=== PATIENT | female | born 1990 | race Caucasian/White ===

== ENCOUNTER 2017-06-16 11:59 | Emergency (ER) | payer OTHER ==
[~2017-06-16] VITALS: Ht 149.9 cm; Wt 59.0 kg
[~2017-06-16 11:59] MED LIST: FLEXERIL10 MG PO; LORTAB 5/500 501 TAB PO; PRENATAL PLUS1 TA1
--- NOTE | 2017-06-16 12:19 | Urgent Treatment Center Report ---
History of Present Issue Date/Time Seen by Provider 06/16/17 1216 Visit Reason Pt arrived:Walked Presenting Problem:PT C/O FEELING SOA, HURTS TO TAKE A DEEP BREATH AND JUST NOT FEELING WELL Location if Accident: Onset of symptoms date/time:/ or onset unknown for:MEDICAL HX UNKNOWN Have you (or family members/close friends) recently traveled outside the [place]? N If Yes, where/when: Have you had exposure to infectious disease within the past month? TB? Other? Specify: Source patient Exam Limitations no limitations Comment 27-year-old female presents with complaints of pain with deep breath, shortness of breath and dizzy. 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 Patient states all symptoms had disappeared except the sharp pain when she takes a deep breath. She denies pain unless taking a deep breath ALLERGIES Coded Allergies: amoxicillin (Mild, 06/16/17) Home Medications Reported Medications No Known Home Medications History Medical History General Angina: No [place]: No Hypertension? No Hyperlipidemia? No CHF? No COPD? No Asthma? No CVA? No Seizures? No Diabetes? No GB Disease: No MRSA? No TB? No Cancer? No Immunization HX DT/Tetanus 1-4 YRS Surgical Hx Previous Surgery?N Social History Smoking Hx Smoker: Never Smoker Tobacco: No Alcohol Alcohol: No Review of Systems All Other Systems Reviewed and Negative Respiratory see HPI, shortness of breath Physical Exam Vital Signs Vital Signs Date Time Temp Pulse Resp B/P Pulse O2 O2 Flow FiO2 Ox Delivery Rate 06/16 1208 98.5 77 20 128/85 100 - WBC >12,000 or <4,000 or 10% bands? 2 or more SIRS Criteria Met? B/P:128/85 MAP:99 Creatinine >2.0? UA output<0.5ml/kg/hr for 2 hrs? Platelet count >100,000? Lactate >2.0mmol/1? INR >1.2 or PTT > than 60 sec? Evidence of Organ Dysfunction? Provider documented clinical suspician of infection? Sepsis Criteria Count: 0 Sepsis Risk: General Appearance normal appearance, no apparent distress Respiratory Status Yes: trachea midline, chest symmetrical, non tender chest. No: respiratory distress. Lung Sounds bilateral: normal breath sounds, lungs clear. Cardiovascular normal exam, regular rate/rhythm, no peripheral edema, no murmur Neurologic alert, normal exam, oriented x 3 Medical Decision Making LABS/Meds/Orders Pt receiving controlled substance in ED? No Results/Orders Laboratory Tests 06/16/17 1225: Creatine Kinase 62, CK-MB (CK-2) Rel Index 0.8, CK and CKMB Interp < 0.5, Troponin I < 0.02 06/16/17 1225: Sodium 135 L, Potassium 4.2, Chloride 102, Carbon Dioxide 26, BUN 19 H, Creatinine 0.8, Estimated Creat Clear 100, Estimated GFR (MDRD) 87, Glucose 90, Calcium 9.1, Total Bilirubin 0.2, AST 12 L, ALT 14, Alkaline Phosphatase 98, Total Protein 8.5 H, Albumin 4.0, Globulin 4.5 H, Albumin/Globulin Ratio 0.9 L, D-Dimer < 100, WBC 7.5, RBC 4.63, Hgb 10.9 L, Hct 36.1 L, MCV 78.0 L, RDW 15.4, Plt Count 254, MPV 8.5, Gran % 61.0, Gran # 4.6, Lymphocytes % 33.8, Monocytes % 4.0, Eosinophils % 0.9, Basophils % 0.3, Lymphocytes # 2.5, Monocytes # 0.3, Eosinophils # 0.1, Basophils # 0.0, PUBS MCHC 30.2 L, MCH 23.5 L Orders Procedure Date/time Status [id number] VIEWS 06/16 1312 Active URINE 06/16 1219 Complete CARDIAC ENZYMES 06/16 1219 Complete CHEST(2 VIEWS-NOT PORTABLE) 06/16 1216 Active D-DIMER 06/16 1216 Complete CBC WITH AUTO DIFF 06/16 1216 Complete CHEM 12 PROFILE 06/16 1216 Complete XRAY/CT/US XRAY/CT/US XRAY chest XR interpretation by reviewed by me (marisa) Xray Results normal/NAD, no fracture seen Consult MD Physician Consult Consult/PCP engel Time Called 1348 Reason Pt. Condition Comments Patient's labs, patient's complaints, x-ray Departure Departure Time of Disposition 1348 Disposition DC Home or Self Care(routine) Clinical Impression Primary Impression: Muscle strain Condition STABLE Referrals Boy GEORGE,Beka (Family) Patient Instructions Muscle Strain Additional Instructions Rotate heat and ice for comfort Ibuprofen or Tylenol for pain Follow-up with PCP this week Symptoms worsen or do not improve return or be seen in the ER Discharge Counseling Counseled pt/family regarding diagnosis, test results, medications/RX, home care, follow up needs Prescriptions Current Visit Scripts No Known Home Medications at 1350
[2017-06-16 12:52] LABS: HEMOGLOBIN 10.9 g/dL (12.2-16.2); LYMPH # 2.5 K/mm3 (0.7-4.5); LYMPH % 33.8 % (10-50.0)
[2017-06-16 13:51] VITALS: BP 128/85
--- NOTE | 2017-06-16 16:48 | RADIOLOGY REPORT PS360 ---
[id number] VIEWS HISTORY: Left-sided chest pain/rib pain chest pain,sob ORDERING PHYSICIAN: Jesi Wilhelm PATIENT AGE: 27 years COMPARISON: None FINDINGS: Multiple views of the Left ribs were obtained. No fracture or dislocation. No lytic or blastic change. IMPRESSION: Negative RIBS. If pain persists, consider follow-up exam in 7-[address] with 3-D reformats.
--- NOTE | 2017-06-16 16:49 | RADIOLOGY REPORT PS360 ---
CHEST(2 VIEWS-NOT PORTABLE) HISTORY: sob ORDERING PHYSICIAN: Jesi Wilhelm PATIENT AGE: 27 years COMPARISON: None available FINDINGS: The cardiomediastinal silhouette and pulmonary vascularity are within normal limits. The lungs are clear without infiltrates, suspicious nodules, or pleural effusions. No acute bony abnormalities. There is mild thoracic curvature convex right and there is a mild pectus deformity with some silhouetting out of the right heart border. IMPRESSION: No acute finding
--- OUTSIDE RECORDS SUMMARY | 2017-06-17 03:45 | External Medical Summary Rpt | CCD ---
Author Author , ADI JOSHI Address Unknown Phone [email or web address] Care Team Providers Care Corporate Event Planner Name Role Phone DRUZE ANESTHESIA Unavailable Unavailable PSC, DRUZE ANESTHESIA [facility], Unavailable Unavailable [facility], Unavailable Unavailable [facility] Unavailable Unavailable HOLDINGS, [facility] Unavailable Unavailable HOLDINGS, [facility] [place] SURVEYING OR SPATIAL SCIENCE TECHNICIAN Unavailable Unavailable ASSOCIATES,, [place] [facility], [facility] Unavailable [facility]available [facility], [facility] Unavailable Unavailable [facility], [facility] Un[facility] ANGELINA BARILLAS, Unavailable Unavailable ANGELINA BARILLAS LIZETH CANDELARIA, LIZETH Unavailable Unavailable CANDELARIA WHITE III SARAH, WHITE Unavailable Unavailable III SARAH Purpose Continuity of Care Document - 06-24-2014 through 2016 Problems Code Diagnosis DOS Provider Status Z3049 ENCOUNTER 04-26-2016 [place] FOR SURVEYING OR SPATIAL SCIENCE TECHNICIAN SURVEILLANC ASSOCIATES, E OTHER CONTRACEPTI VES Z392 ENCOUNTER 04-26-2016 [facility] FOR [facility]OUTINE [facility] FOLLOW-UP O80 ENCOUNTER 03-09-2016 [facility] FOR ANESTHESIA FULL-TERM PSC UNCOMPLICAT ED DELIVERY [id number] ANEMIA 03-09-2016 [facility] COMPLICATIN SURVEYING OR SPATIAL SCIENCE TECHNICIAN G ASSOCIATES, THIRD TRIMESTER Z370 SINGLE LIVE 03-09-2016 [facility] ANESTHESIA PSC Z3A40 40 WEEKS 03-09-2016 [place] GESTATION SURVEYING OR SPATIAL SCIENCE TECHNICIAN OF ASSOCIATES, T12791 OTH MENTAL 03-08-2016 [facility] DISORDER SURVEYING OR SPATIAL SCIENCE TECHNICIAN COMP ASSOCIATES, 3RD TRIMESTER D03370 DISEASES 03-08-2016 [facility] NERVOUS SURVEYING OR SPATIAL SCIENCE TECHNICIAN SYSTEM COMP ASSOCIATES, 3RD TRI Z3483 ENC 02-16-2016 [facility] DI[facility]NO[facility] OTH NORMAL [facility] 3 TRIMESTER Z36 ENCOUNTER 02-16-2016 [facility] FOR DIAGNOSTIC LAB [facility] SCREENING OF MOTHER Z3480 ENC 12-08-2015 [facility] SUPERVISION [facility] OTH NORMAL HOLDINGS PREG UNS TRIMESTER F88688 OTH MENTAL 11-10-2015 [facility] DISORDER SURVEYING OR SPATIAL SCIENCE TECHNICIAN COMP ASSOC[facility]ATES, 2ND TRIMESTER N72 INFLAMMATOR 10-13-2015 [facility] Y DISEASE [facility] OF [facility] HOLDINGS UTERI C68179 UTERINE 08-18-2015 [place] SIZE-DATE SURVEYING OR SPATIAL SCIENCE TECHNICIAN DISCREPANCY ASSOCIATES, FIRST TRIMESTER Z05241 OTH MENTAL 08-18-2015 [facility] DISORDER SURVEYING OR SPATIAL SCIENCE TECHNICIAN COMP ASSOCIATES, 1ST TRIMESTER 6202 OTHER AND 12-30-2014 [place] UNSPECIFIED SURVEYING OR SPATIAL SCIENCE TECHNICIAN OVARIAN ASSOCIATES, CYST 10992 INFECTIONS 12-30-2014 [place] OF SURVEYING OR SPATIAL SCIENCE TECHNICIAN GENITOURINA ASSOCIATES, RY TRACT ANTEPARTUM V7231 ROUTINE 11-11-2014 [facility] GYNECOLOGIC LLC AL EXAMINATION V745 SCREENING 11-11-2014 [facility] EXAMINATION LLC FOR VENEREAL DISEASE 61625 NAUSEA WITH 06-24-2014 [facility] Procedures Procedure DOS Code Location Performer Comment CYTP C/V 83036 [facility], PICKLESIM AUTO THIN 6 LLC ER JR NARGIS LYR PREPJ SCR MNL RESCR PHYS VAGINAL 64640 [place] LIZETH DELIVERY 6 SURVEYING OR SPATIAL SCIENCE TECHNICIAN CANDELARIA ONLY ASSOCIATE S, NEURAXIAL 04957 DRUZE WHITE III LABOR 6 ANESTHESI SARAH ANALG/ANE A PSC S PLND VAGINAL DELIVERY IADNA 04556 [facility] STREPTOCO 6 DIAGNOSTI DIAGNOSTI CCUS C LAB LLC C LAB LLC GROUP B AMPLIFIED PROBE TQ GLUCOSE 57676 [facility] POST 6 GABO [facility] GLUCOSE HOLDINGS HOLDINGS DOSE ANTIBODY 76845 [facility] SCREEN 6 GABO GABO RBC EACH HOLDINGS HOLDINGS SERUM TECHNIQUE BLOOD 95000 [facility] COUNT 6 GABO GABO COMPLETE HOLDINGS HOLDINGS AUTOMATED IADNA 70666 [facility] NEISSERIA 6 GABO GAB[facility] HOLDINGS HOLDINGS GONORRHOE AE AMPLIFIED PROBE TQ IADNA 13683 [facility] CHLAMYDIA 6 [facility] HOLDINGS HOLDINGS [place] [address] [place] LIZETH 5 SURVEYING OR SPATIAL SCIENCE TECHNICIAN CANDELARIA UTERUS 14 ASSOCIATE WK S, TRANSABDL [place]STAT [place] PREG 20034 [place] LIZETH UTERUS 5 SURVEYING OR SPATIAL SCIENCE TECHNICIAN CANDELARIA REAL TIME ASSOCIATE W/IMAGE S, DCMTN TRANSVAG CYTP C/V 96126 [facility] PICKLESIM AUTO THIN 5 LLC ER JR NARGIS LYR PREPJ SCR MNL RESCR PHYS IADNA 58991 [facility], PICKLESIM CHLAMYDIA 5 LLC ER JR NARGIS TRACHOMAT IS AMPLIFIED PROBE TQ IADNA 31016 [facility], P[facility]LESIM NEISSERIA 5 LLC ER JR NARGIS GONORRHOE AE AMPLIFIED PROBE TQ Encounters Encounter Start End Date Code Location Performer Type Date OFFICE 64314 [place] LIZETH OUTPATIEN 6 6 SURVEYING OR SPATIAL SCIENCE TECHNICIAN CANDELARIA T VISIT ASSOCIATE 15 S, MINUTES OFFICE 85191 [place] LIZETH OUTPATIEN 6 6 SURVEYING OR SPATIAL SCIENCE TECHNICIAN CANDELARIA T VISIT ASSOCIATE 15 S, MINUTES OFFICE 95820 [place] LIZETH OUTPATIEN 6 6 SURVEYING OR SPATIAL SCIENCE TECHNICIAN CANDELARIA T VISIT ASSOCIATE 15 S, MINUTES OFFICE 84552 [place] LIZETH OUTPATIEN 6 6 SURVEYING OR SPATIAL SCIENCE TECHNICIAN CANDELARIA T VISIT ASSOCIATE 15 S, MINUTES OFFICE 24036 [place] LIZETH OUTPATIEN 6 6 SURVEYING OR SPATIAL SCIENCE TECHNICIAN CANDELARIA T VISIT ASSOCIATE 15 S, MINUTES OFFICE 37935 [place] LIZETH OUTPATIEN 6 6 SURVEYING OR SPATIAL SCIENCE TECHNICIAN CANDELARIA T VISIT ASSOCIATE 15 S, MINUTES OFFICE 19957 [place] LIZETH OUTPATIEN 6 6 SURVEYING OR SPATIAL SCIENCE TECHNICIAN CANDELARIA T VISIT ASSOCIATE 15 S, MINUTES OFFICE 06426 [place] LIZETH OUTPATIEN 6 6 SURVEYING OR SPATIAL SCIENCE TECHNICIAN CANDELARIA T VISIT ASSOCIATE 15 S, MINUTES OFFICE 56492 [place] LIZETH OUTPATIEN 6 6 SURVEYING OR SPATIAL SCIENCE TECHNICIAN CANDELARIA T VISIT ASSOCIATE 15 S, MINUTES OFFICE 84594 [place] LIZETH OUTPATIEN 6 6 SURVEYING OR SPATIAL SCIENCE TECHNICIAN CANDELARIA T VISIT ASSOCIATE 15 S, MINUTES OFFICE 29640 [place] LIZETH OUTPATIEN 6 6 SURVEYING OR SPATIAL SCIENCE TECHNICIAN CANDELARIA T VISIT ASSOCIATE 15 S, MINUTES OFFICE 88590 [place] LIZETH OUTPATIEN 6 6 SURVEYING OR SPATIAL SCIENCE TECHNICIAN CANDELARIA T VISIT ASSOCIATE 15 S, MINUTES OFFICE 48041 [facility] OUTPATIEN 5 5 SURVEYING OR SPATIAL SCIENCE TECHNICIAN CANDELARIA T VISIT ASSOCIATE 15 S, MINUTES OFFICE 79807 [facility] OUTPATIEN 5 5 SURVEYING OR SPATIAL SCIENCE TECHNICIAN CANDELARIA T VISIT ASSOCIATE 25 S, MINUTES PERIODIC 75369 [facility] STAN[facility] PREVENTIV 5 5 SURVEYING OR SPATIAL SCIENCE TECHNICIAN CANDELARIA E MED EST ASSOCIATE PATIENT S, 18-39 YRS OFFICE 85583 [facility] INGRIS OUTPATIEN 4 4 PHYSICIAN MARKUS T VISIT S GROUP 10 MINUTES
--- OUTSIDE RECORDS SUMMARY | 2017-06-17 03:45 | External Medical Summary Rpt | CCD ---
Author Author , ADI JOSHI Address Unknown Phone [email or web address] Care Team Providers Care Precision Inspector Name Role Phone MORAVIAN ANESTHESIA Unavailable Unavailable PSC, MORAVIAN ANESTHESIA PSC [facility], Unavailable Unavailable [facility], Unavailable Unavailable [facility] Unavailable Unavailable HOLDINGS, [facility] Unavailable Unavailable HOLDINGS, [facility] [place] CROP CONSULTANT Unavailable Unavailable ASSOCIATES,, [place] [facility], [facility] Unavailable Unavailable [facility], [...] Provider Status Z3049 ENCOUNTER 04-26-2016 [place] FOR CROP CONSULTANT SURVEILLANC ASSOCIATES, E OTHER CONTRACEPTI VES Z392 ENCOUNTER 04-26-2016 [facility] FOR ROUTINE LLC FOLLOW-UP O80 ENCOUNTER 03-09-2016 [place] FOR ANESTHESIA FULL-TERM PSC UNCOMPLICAT ED DELIVERY Z99772 ANEMIA 03-09-2016 [facility] COMPLICATIN CROP CONSULTANT G ASSOCIATES, THIRD TRIMESTER Z370 SINGLE LIVE 03-09-2016 MORAVIAN ANESTHESIA PSC Z3A40 40 WEEKS 03-09-2016 [place] GESTATION CROP CONSULTANT OF ASSOCIATES, U75165 OTH MENTAL 03-08-2016 [facility] DISORDER CROP CONSULTANT COMP ASSOCIATES, 3RD TRIMESTER Q83663 DISEASES 03-08-2016 [facility] NERVOUS CROP CONSULTANT SYSTEM COMP ASSOCIATES, 3RD TRI Z3483 ENC 02-16-2016 [facility] DIAGNOSTIC OTH NORMAL LAB LLC 3 TRIMESTER Z36 ENCOUNTER 02-16-2016 [facility] FOR DIAGNOSTIC LAB LLC SCREENING OF MOTHER Z3480 ENC 12-08-2015 [facility] SUPERVISION [facility]ABO OTH NORMAL HOLDINGS PREG UNS TRIMESTER G73116 OTH MENTAL 11-10-2015 [facility] DISORDER CROP CONSULTANT COMP ASSOCIATES, 2ND TRIMESTER N72 INFLAMMATOR 10-13-2015 [facility] Y DISEASE [facility] OF [facility] HOLDINGS UTERI L68643 UTERINE 08-18-2015 [place] SIZE-DATE CROP CONSULTANT DISCREPANCY ASSOCIATES, FIRST TRIMESTER X09071 OTH MENTAL 08-18-2015 [facility] DISORDER CROP CONSULTANT COMP ASSOCIATES, 1ST TRIMESTER 6202 OTHER AND 12-30-2014 [place] UNSPECIFIED CROP CONSULTANT OVARIAN ASSOCIATES, CYST 32369 INFECTIONS 12-30-2014 [place] OF CROP CONSULTANT GENITOURINA ASSOCIATES, RY TRACT ANTEPARTUM V7231 ROUTINE 11-11-2014 [facility] GYNECOLOGIC LLC AL EXAMINATION V745 SCREENING 11-11-2014 [facility] EXAMINATION LLC FOR VENEREAL DISEASE 57303 NAUSEA WITH 06-24-2014 [facility] Procedures Procedure DOS Code Location Performer Comment CYTP C/V 92766 [facility], PICKLESIM AUTO THIN 6 LLC ER JR NARGIS LYR PREPJ SCR MNL RESCR PHYS VAGINAL 57260 [place] LIZETH DELIVERY 6 CROP CONSULTANT CANDELARIA ONLY ASSOCIATE S, NEURAXIAL 27491 MORAVIAN WHITE III LABOR 6 ANESTHESI SARAH ANALG/ANE A PSC S PLND VAGINAL DELIVERY IADNA 53517 [facility] MEDICAL STREPTOCO 6 DIAGNOSTI DIAGNOSTI CCUS C LAB LLC C LAB LLC GROUP B AMPLIFIED PROBE TQ GLUCOSE 33712 [facility] POST 6 GABO [facility] GLUCOSE HOLDINGS HOLDINGS DOSE ANTIBODY 55954 [facility] SCREEN 6 GABO GABO RBC EACH HOLDINGS HOLDINGS SERUM TECHNIQUE BLOOD 07578 [facility] LAB [facility] COUNT 6 GAB[facility] GABO COMPLETE HOLDINGS HOLDINGS AUTOMATED IADNA 22250 [facility] NEISSERIA 6 GAB[facility] G[facility] HOLDINGS HOLDINGS GONORRHOE AE AMPLIFIED PROBE TQ IADNA 26757 [facility] CHLAMYDIA 6 GABO GABO HOLDINGS HOLDINGS [place] [address] [place] LIZETH 5 CROP CONSULTANT CANDELARIA UTERUS 14 ASSOCIATE WK S, TRANSABDL [place]STAT [place] PREG 56571 [place] LIZETH UTERUS 5 CROP CONSULTANT CANDELARIA REAL TIME ASSOCIATE W/IMAGE S, DCMTN TRANSVAG CYTP C/V 82569 [facility] P[facility] AUTO THIN 5 LLC ER JR NARGIS LYR PREPJ SCR MNL RESCR PHYS IADNA 33120 [facility], P[facility]IM CHLAMYDIA 5 LLC ER JR NARGIS TRACHOMAT IS AMPLIFIED PROBE TQ IADNA 87991 [facility] P[facility] NEISSERIA 5 LLC ER JR NARGIS GONORRHOE AE AMPLIFIED PROBE TQ Encounters Encounter Start End Date Code Location Performer Type Date OFFICE 80453 [place] LIZETH OUTPATIEN 6 6 CROP CONSULTANT CANDELARIA T VISIT ASSOCIATE 15 S, MINUTES OFFICE 20708 [place] LIZETH OUTPATIEN 6 6 CROP CONSULTANT CANDELARIA T VISIT ASSOCIATE 15 S, MINUTES OFFICE 53993 [place] LIZETH OUTPATIEN 6 6 CROP CONSULTANT CANDELARIA T VISIT ASSOCIATE 15 S, MINUTES OFFICE 27301 [place] LIZETH OUTPATIEN 6 6 CROP CONSULTANT CANDELARIA T VISIT ASSOCIATE 15 S, MINUTES OFFICE 38043 [place] LIZETH OUTPATIEN 6 6 CROP CONSULTANT CANDELARIA T VISIT ASSOCIATE 15 S, MINUTES OFFICE 67927 [place] LIZETH OUTPATIEN 6 6 CROP CONSULTANT CANDELARIA T VISIT ASSOCIATE 15 S, MINUTES OFFICE 58397 [place] LIZETH OUTPATIEN 6 6 CROP CONSULTANT CANDELARIA T VISIT ASSOCIATE 15 S, MINUTES OFFICE 35730 [place] LIZETH OUTPATIEN 6 6 CROP CONSULTANT CANDELARIA T VISIT ASSOCIATE 15 S, MINUTES OFFICE 90267 [place] LIZETH OUTPATIEN 6 6 CROP CONSULTANT CANDELARIA T VISIT ASSOCIATE 15 S, MINUTES OFFICE 11719 [place] LIZETH OUTPATIEN 6 6 CROP CONSULTANT CANDELARIA T VISIT ASSOCIATE 15 S, MINUTES OFFICE 80731 [place] LIZETH OUTPATIEN 6 6 CROP CONSULTANT CANDELARIA T VISIT ASSOCIATE 15 S, MINUTES OFFICE 24883 [place] LIZETH OUTPATIEN 6 6 CROP CONSULTANT CANDELARIA T VISIT ASSOCIATE 15 S, MINUTES OFFICE 20824 [facility] STAN[facility] OUTPATIEN 5 5 CROP CONSULTANT CANDELARIA T VISIT ASSOCIATE 15 S, MINUTES OFFICE 77545 [facility] ST[facility] OUTPATIEN 5 5 CROP CONSULTANT CANDELARIA T VISIT ASSOCIATE 25 S, MINUTES PERIODIC 67854 [facility] STANLEY PREVENTIV 5 5 CROP CONSULTANT CANDELARIA E MED EST ASSOCIATE PATIENT S, 18-39 YRS OFFICE 79959 [facility] OUTPATIEN 4 4 PHYSICIAN MARKUS T VISIT S GROUP 10 MINUTES
--- OUTSIDE RECORDS SUMMARY | 2017-06-17 03:46 | External Medical Summary Rpt | CCD ---
Author Author , ADI JOSHI Address Unknown Phone [email or web address] Care Team Providers Care Job Placement Counselor Name Role Phone TAOISM ANESTHESIA Unavailable Unavailable [facility], [facility], Unavailable Unavailable [facility], Unavailable Unavailable [facility] Unavailable Unavailable HOLDINGS, [facility] Unavailable Unavailable HOLDINGS, [facility] [place] COTTAGE SUPERVISOR Unavailable Unavailable ASSOCIATES,, [place] [facility], [facility] Unavailable [facility]available [facility], [facility] Unavailable [facility], [facility], [facility] Un[facility] LLC ANGELINA BARILLAS, Unavailable Unavailable ANGELINA GAONA, LIZETH Unavailable Unavailable CANDELARIA WHITE III SARAH, WHITE Unavailable Unavailable III SARAH Purpose Continuity of Care Document - 06-24-2014 through 2016 Problems Code Diagnosis DOS Provider Status Z3049 ENCOUNTER 04-26-2016 [place] FOR COTTAGE SUPERVISOR SURVEILLANC ASSOCIATES, E OTHER CONTRACEPTI VES Z392 ENCOUNTER 04-26-2016 [facility] FOR ROUTINE LLC FOLLOW-UP O80 ENCOUNTER 03-09-2016 [facility] FOR ANESTHESIA FULL-TERM PSC UNCOMPLICAT ED DELIVERY [id number] ANEMIA 03-09-2016 [place] COMPLICATIN COTTAGE SUPERVISOR G ASSOCIATES, THIRD TRIMESTER Z370 SINGLE LIVE 03-09-2016 [facility]OISM ANESTHESIA PSC [id number] 40 WEEKS 03-09-2016 [place] GESTATION COTTAGE SUPERVISOR OF ASSOCIATES, [id number] OTH MENTAL 03-08-2016 [place] DISORDER COTTAGE SUPERVISOR COMP ASSOCIATES, 3RD TRIMESTER U30510 DISEASES 03-08-2016 [place] NERVOUS COTTAGE SUPERVISOR SYSTEM COMP ASSOCIATES, 3RD TRI Z3483 ENC 02-16-2016 [facility]VISION DIAGNOSTIC OTH NORMAL LAB [facility] 3 TRIMESTER Z36 ENCOUNTER 02-16-2016 [facility] FOR DIAGNOSTIC LAB LLC SCREENING OF MOTHER Z3480 ENC 12-08-2015 LAB [facility] SUPERVISION [facility]ABO OTH NORMAL HOLDINGS PREG UNS TRIMESTER H03406 OTH MENTAL 11-10-2015 [place] DISORDER COTTAGE SUPERVISOR COMP ASSOCIATES, 2ND TRIMESTER N72 INFLAMMATOR 10-13-2015 LAB [facility] Y DISEASE [facility] OF CERVIX HOLDINGS UTERI Z34593 UTERINE 08-18-2015 [facility] COTTAGE SUPERVISOR DISCREPANCY ASSOCIATES, FIRST TRIMESTER C86970 OTH MENTAL 08-18-2015 [place] DISORDER COTTAGE SUPERVISOR COMP ASSOCIATES, 1ST TRIMESTER 6202 OTHER AND 12-30-2014 [employer] UNSPECIFIED COTTAGE SUPERVISOR OVARIAN ASSOCIATES, CYST 93174 INFECTIONS 12-30-2014 [employer] OF COTTAGE SUPERVISOR GENITOURINA ASSOCIATES, RY TRACT ANTEPARTUM V7231 ROUTINE 11-11-2014 [facility], GYNECOLOGIC ZummZumm AL EXAMINATION V745 SCREENING 11-11-2014 [facility], EXAMINATION LLC FOR VENEREAL DISEASE 93773 NAUSEA WITH 06-24-2014 [facility] Procedures Procedure DOS Code Location Performer Comment CYTP C/V 78042 [facility], PICKLESIM AUTO THIN 6 LLC ER JR NARGIS LYR PREPJ SCR MNL RESCR PHYS VAGINAL 71712 [place] LIZETH DELIVERY 6 COTTAGE SUPERVISOR CANDELARIA ONLY ASSOCIATE S, NEURAXIAL 74458 TAOISM WHITE III LABOR 6 ANESTHESI SARAH ANALG/ANE A PSC S PLND VAGINAL DELIVERY IADNA 59085 [facility] STREPTOCO 6 DIAGNOSTI DIAGNOSTI CCUS C LAB LLC C LAB LLC GROUP B AMPLIFIED PROBE TQ BLOOD 21434 [facility] LAB [facility] COUNT 6 GABO GABO COMPLETE HOLDINGS HOLDINGS AUTOMATED ANTIBODY 81551 LAB [facility] LAB [facility] SCREEN 6 GABO GABO RBC EACH HOLDINGS HOLDINGS SERUM TECHNIQUE GLUCOSE 44277 LAB [facility] LAB [facility] POST 6 GABO GABO GLUCOSE HOLDINGS HOLDINGS DOSE IADNA 41954 [facility] LAB [facility] CHLAMYDIA 6 GABO GABO HOLDINGS HOLDINGS TRACHOMAT IS AMPLIFIED PROBE TQ IADNA 35067 LAB [facility] LAB [facility] NEISSERIA 6 GABO GABO HOLDINGS HOLDINGS [place] [address] [place] LIZETH 5 COTTAGE SUPERVISOR CANDELARIA UTERUS 14 ASSOCIATE WK S, TRANSABDL GESTAT [place] PREG 94583 [place] LIZETH UTERUS 5 COTTAGE SUPERVISOR CANDELARIA REAL TIME ASSOCIATE W/IMAGE S, DCMTN TRANSVAG CYTP C/V 82741 [facility], PICKLESIM AUTO THIN 5 LLC ER JR NARGIS LYR PREPJ SCR MNL RESCR PHYS IADNA 49149 [facility], PICKLESIM NEISSERIA 5 LLC ER JR NARGIS GONORRHOE AE AMPLIFIED PROBE TQ IADNA 09086 [facility], PICKLESIM CHLAMYDIA 5 LLC ER JR NARGIS TRACHOMAT IS AMPLIFIED PROBE TQ Encounters Encounter Start End Date Code Location Performer Type Date OFFICE 88782 [place] LIZETH OUTPATIEN 6 6 COTTAGE SUPERVISOR CANDELARIA T VISIT ASSOCIATE 15 S, MINUTES OFFICE 86532 [place] LIZETH OUTPATIEN 6 6 COTTAGE SUPERVISOR CANDELARIA T VISIT ASSOCIATE 15 S, MINUTES OFFICE 92683 [place] LIZETH OUTPATIEN 6 6 COTTAGE SUPERVISOR CANDELARIA T VISIT ASSOCIATE 15 S, MINUTES OFFICE 31251 [place] LIZETH OUTPATIEN 6 6 COTTAGE SUPERVISOR CANDELARIA T VISIT ASSOCIATE 15 S, MINUTES OFFICE 62803 [place] LI[facility]ETH OUTPATIEN 6 6 COTTAGE SUPERVISOR CANDELARIA T VISIT ASSOCIATE 15 S, MINUTES OFFICE 65838 [place] LI[facility] OUTPATIEN 6 6 COTTAGE SUPERVISOR CANDELARIA T VISIT ASSOCIATE 15 S, MINUTES OFFICE 71686 [place] LIZETH OUTPATIEN 6 6 COTTAGE SUPERVISOR CANDELARIA T VISIT ASSOCIATE 15 S, MINUTES OFFICE 76997 [place] LI[facility] OUTPATIEN 6 6 COTTAGE SUPERVISOR CANDELARIA T VISIT ASSOCIATE 15 S, MINUTES OFFICE 68792 [place] [facility] OUTPATIEN 6 6 COTTAGE SUPERVISOR CANDELARIA T VISIT ASSOCIATE 15 S, MINUTES OFFICE 49377 [place] LI[facility]ETH OUTPATIEN 6 6 COTTAGE SUPERVISOR CANDELARIA T VISIT ASSOCIATE 15 S, MINUTES OFFICE 10855 [place] LI[facility]ETH OUTPATIEN 6 6 COTTAGE SUPERVISOR CANDELARIA T VISIT ASSOCIATE 15 S, MINUTES OFFICE 74723 [place] [facility] OUTPATIEN 6 6 COTTAGE SUPERVISOR CANDELARIA T VISIT ASSOCIATE 15 S, MINUTES OFFICE 07089 [facility] OUTPATIEN 5 5 COTTAGE SUPERVISOR CANDELARIA T VISIT ASSOCIATE 15 S, MINUTES OFFICE 28877 [facility] OUTPATIEN 5 5 COTTAGE SUPERVISOR CANDELARIA T VISIT ASSOCIATE 25 S, MINUTES PERIODIC 02440 [facility] PREVENTIV 5 5 COTTAGE SUPERVISOR CANDELARIA E MED EST ASSOCIATE PATIENT S, 18-39 YRS OFFICE 87641 [facility] INGRIS OUTPATIEN 4 4 PHYSICIAN MARKUS T VISIT S GROUP 10 MINUTES
--- OUTSIDE RECORDS SUMMARY | 2017-06-17 03:46 | External Medical Summary Rpt | CCD ---
Demographics Preferred Language Bolivian Marital Status Unknown Hoahaoism Affiliation Unknown Race Unknown Ethnic Group Unknown Author Author , CASSY JOSHI Address Unknown Phone Immunization No patient found.
--- OUTSIDE RECORDS SUMMARY | 2017-06-17 03:46 | External Medical Summary Rpt | CCD ---
Demographics Preferred Language Welsh Marital Status Unknown Alevism Affiliation Unknown Race Unknown Ethnic Group Unknown Author Author , CASSY JOSHI Address Unknown Phone Immunization No patient found.
--- OUTSIDE RECORDS SUMMARY | 2017-06-17 03:46 | External Medical Summary Rpt | CCD ---
Author Author , ADI JOSHI Address Unknown Phone [email or web address] Care Team Providers Care Windows Mobile Developer Name Role Phone SIKH ANESTHESIA Unavailable Unavailable [facility]SC, [facility] ANESTHESIA [facility], Unavailable Unavailable [facility], Unavailable Unavailable [facility] LAB [facility] Unavailable Unavailable HOLDINGS, [facility] Unavailable Unavailable HOLDINGS, [facility] HOLDINGS [place] GAS FLOW REGULATOR Unavailable Unavailable ASSOCIATES,, [place] G[facility] FLOW REGUL[facility], [facility] Unavailable Unavailable [facility], [...] Provider Status Z3049 ENCOUNTER 04-26-2016 [place] FOR GAS FLOW REGULATOR SURVEILLANC ASSOCIATES, E OTHER CONTRACEPTI VES Z392 ENCOUNTER 04-26-2016 [facility] FOR ROUTINE LLC FOLLOW-UP O80 ENCOUNTER 03-09-2016 [facility] FOR ANESTHESIA FULL-TERM PSC UNCOMPLICAT ED DELIVERY L25717 ANEMIA 03-09-2016 [place] COMPLICATIN GAS FLOW REGULATOR G ASSOCIATES, THIRD TRIMESTER Z370 SINGLE LIVE 03-09-2016 [facility] ANESTHESIA PSC Z3A40 40 WEEKS 03-09-2016 [place] GESTATION GAS FLOW REGULATOR OF ASSOCIATES, W27833 OTH MENTAL 03-08-2016 [place] DISORDER GAS FLOW REGULATOR COMP ASSOCIATES, 3RD TRIMESTER I49730 DISEASES 03-08-2016 [place] NERVOUS GAS FLOW REGULATOR SYSTEM COMP ASSOCIATES, 3RD TRI Z3483 ENC 02-16-2016 MEDICAL SUPERVISION DIAGNOSTIC OTH NORMAL LAB LLC 3 TRIMESTER Z36 ENCOUNTER 02-16-2016 MEDICAL FOR DIAGNOSTIC LAB LLC SCREENING OF MOTHER Z3480 ENC 12-08-2015 LAB [facility]AK[facility]ER SUPERVISION GABO OTH NORMAL HOLDINGS PREG UNS TRIMESTER [id number] OTH MENTAL 11-10-2015 [place] DISORDER GAS FLOW REGULATOR COMP ASSOCIATES, 2ND TRIMESTER N72 INFLAMMATOR 10-13-2015 LAB [facility] Y DISEASE [facility] OF CERVIX HOLDINGS UTERI T78952 UTERINE 08-18-2015 [facility] GAS FLOW REGULATOR DISCREPANCY ASSOCIATES, FIRST TRIMESTER G05789 OTH MENTAL 08-18-2015 [place] DISORDER GAS FLOW REGULATOR COMP ASSOCIATES, 1ST TRIMESTER 6202 OTHER AND 12-30-2014 [place] UNSPECIFIED GAS FLOW REGULATOR OVARIAN ASSOCIATES, CYST 75808 INFECTIONS 12-30-2014 [place] OF GAS FLOW REGULATOR GENITOURINA ASSOCIATES, RY TRACT ANTEPARTUM V7231 ROUTINE 11-11-2014 [facility] GYNECOLOGIC [employer] AL EXAMINATION V745 SCREENING 11-11-2014 [facility], EXAMINATION LLC FOR VENEREAL DISEASE 20945 NAUSEA WITH 06-24-2014 [facility] Procedures Procedure DOS Code Location Performer Comment CYTP C/V 53000 [facility], PICKLESIM AUTO THIN 6 LLC ER JR NARGIS LYR PREPJ SCR MNL RESCR PHYS VAGINAL 98474 [place] [facility] DELIVERY 6 GAS FLOW REGULATOR CANDELARIA ONLY ASSOCIATE S, NEURAXIAL 45765 [facility] WHITE III LABOR 6 ANESTHESI SARAH ANALG/ANE A PSC S PLND VAGINAL DELIVERY IADNA 88785 [facility] STREPTOCO 6 DIAGNOSTI DIAGNOSTI CCUS C LAB LLC C LAB LLC GROUP B AMPLIFIED PROBE TQ BLOOD 31364 LAB [facility] LAB [facility] COUNT 6 [facility] GABO COMPLETE HOLDINGS HOLDINGS AUTOMATED ANTIBODY 15484 [facility] LAB [facility] SCREEN 6 GABO GABO RBC EACH HOLDINGS HOLDINGS SERUM TECHNIQUE GLUCOSE 01699 LAB [facility] LAB LAK[facility]IND[facility] POST 6 GABO GABO GLUCOSE HOLDINGS HOLDINGS DOSE IADNA 60869 LAB [facility] LAB [facility] CHLAMYDIA 6 GAB[facility] GABO HOLDINGS HOLDINGS TRACHOMAT IS AMPLIFIED PROBE TQ IADNA 29352 [facility] LAB [facility] NEISSERIA 6 GAB[facility] GABO HOLDINGS HOLDINGS [place] [address] [place] LIZETH 5 GAS FLOW REGULATOR CANDELARIA UTERUS 14 ASSOCIATE WK S, TRANSABDL [place] PREG 87905 [place] LIZETH UTERUS 5 GAS FLOW REGULATOR CANDELARIA REAL TIME ASSOCIATE W/IMAGE S, DCMTN TRANSVAG CYTP C/V 40693 [facility] PICKLESIM AUTO THIN 5 LLC ER JR NARGIS LYR PREPJ SCR MNL RESCR PHYS IADNA 38598 [facility], P[facility] NEISSERIA 5 LLC ER JR NARGIS GONORRHOE AE AMPLIFIED PROBE TQ IADNA 59110 [facility] PICKLESIM CHLAMYDIA 5 LLC ER JR NARGIS TRACHOMAT IS AMPLIFIED PROBE TQ Encounters Encounter Start End Date Code Location Performer Type Date OFFICE 28128 [place] [facility] OUTPATIEN 6 6 GAS FLOW REGULATOR CANDELARIA T VISIT ASSOCIATE 15 S, MINUTES OFFICE 06299 [place] [facility] OUTPATIEN 6 6 GAS FLOW REGULATOR CANDELARIA T VISIT ASSOCIATE 15 S, MINUTES OFFICE 55466 [place] LI[facility] OUTPATIEN 6 6 GAS FLOW REGULATOR CANDELARIA T VISIT ASSOCIATE 15 S, MINUTES OFFICE 27971 [place] [facility] OUTPATIEN 6 6 GAS FLOW REGULATOR CANDELARIA T VISIT ASSOCIATE 15 S, MINUTES OFFICE 43287 [place] [facility] OUTPATIEN 6 6 GAS FLOW REGULATOR CANDELARIA T VISIT ASSOCIATE 15 S, MINUTES OFFICE 91018 [place] [facility] OUTPATIEN 6 6 GAS FLOW REGULATOR CANDELARIA T VISIT ASSOCIATE 15 S, MINUTES OFFICE 61610 [place] [facility] OUTPATIEN 6 6 GAS FLOW REGULATOR CANDELARIA T VISIT ASSOCIATE 15 S, MINUTES OFFICE 97550 [place] [facility] OUTPATIEN 6 6 GAS FLOW REGULATOR CANDELARIA T VISIT ASSOCIATE 15 S, MINUTES OFFICE 28557 [place] [facility] OUTPATIEN 6 6 GAS FLOW REGULATOR CANDELARIA T VISIT ASSOCIATE 15 S, MINUTES OFFICE 34063 [place] [facility] OUTPATIEN 6 6 GAS FLOW REGULATOR CANDELARIA T VISIT ASSOCIATE 15 S, MINUTES OFFICE 34741 [place] [facility] OUTPATIEN 6 6 GAS FLOW REGULATOR CANDELARIA T VISIT ASSOCIATE 15 S, MINUTES OFFICE 94502 [place] [facility] OUTPATIEN 6 6 GAS FLOW REGULATOR CANDELARIA T VISIT ASSOCIATE 15 S, MINUTES OFFICE 43857 [facility] OUTPATIEN 5 5 GAS FLOW REGULATOR CANDELARIA T VISIT ASSOCIATE 15 S, MINUTES OFFICE 40407 [facility] OUTPATIEN 5 5 GAS FLOW REGULATOR CANDELARIA T VISIT ASSOCIATE 25 S, MINUTES PERIODIC 49621 [facility] PREVENTIV 5 5 GAS FLOW REGULATOR CANDELARIA E MED EST ASSOCIATE PATIENT S, 18-39 YRS OFFICE 75992 [facility] IN[facility]IS OUTPATIEN 4 4 PHYSICIAN MARKUS T VISIT S GROUP 10 MINUTES
== END 2017-06-16 13:52 | disposition home or self-care (01) ==
LOC: UTC 11:59
PROVIDERS: Nurse Practitioner Family
DX: S29.011A Strain of muscle and tendon of front wall of thorax, initial encounter (principal); S21.102A Unspecified open wound of left front wall of thorax without penetration into thoracic cavity, initial encounter; S21.101A Unspecified open wound of right front wall of thorax without penetration into thoracic cavity, initial encounter; X50.0XXA Overexertion from strenuous movement or load, initial encounter